=== PATIENT | female | born 1960 | race Two or more races ===

== ENCOUNTER 2016-09-23 14:06 | Emergency (ER) | payer OTHER ==
[~2016-09-23] VITALS: Ht 154.9 cm; Wt 75.3 kg
[2016-09-23 14:22] VITALS: BP 117/70
[2016-09-23] MEDS ORDERED: ZITHROMAX250 MG ORAL (15:47)
[2016-09-23] MEDS ORDERED: PROMETHAZI6.25 MG/1 ORAL (15:47)
[2016-09-23] MEDS ORDERED: IBUPROFEN600 MG ORAL (15:47)
[2016-09-23 15:55] VITALS: BP 120/74
--- NOTE | 2016-09-23 21:17 | Emergency Room Report ---
History of Present Illness General Chief Complaint: Upper Respiratory Illness Source: Patient Present Illness HPI The patient is a 56-year-old female presenting with fever, chills, and cough for the past 3 days. She produces a great deal of sputum. She denies any known sick contacts recent travel. She denies other symptoms including nausea, vomiting, rash, abdominal pain, chest pain, shortness of breath Allergies: Coded Allergies: No Known Allergies (Unverified , 09/23/16) Patient History Past Medical History: see triage record Pertinent Family History: none Now: No Reviewed Nursing Documentation: PMH: Agreed, PSxH: Agreed Nursing Documentation-PMH Past Medical History: No Stated History Review of Systems All Other Systems: negative except mentioned in HPI Physical Exam Vital Signs Date Time Temp Pulse Resp B/P Pulse Ox O2 Delivery O2 Flow Rate FiO2 09/23/16 14:15 100.2 88 15 117/70 99 Room Air Sp02 EP Interpretation: reviewed, normal General Appearance: no apparent distress, alert, GCS 15, non-toxic Head: normocephalic, atraumatic Eyes: bilateral eye PERRL, bilateral eye normal inspection ENT: hearing grossly normal, normal pharynx, no angioedema, normal voice Neck: full range of motion, supple/symm/no masses Respiratory: chest non-tender, lungs clear, normal breath sounds, no wheezing, speaking full sentences Cardiovascular #1: regular rate, rhythm, no edema Musculoskeletal: back normal, gait/station normal, normal range of motion, non- tender Neurologic: alert, oriented x3, responsive, motor strength/tone normal, sensory intact, speech normal Psychiatric: judgement/insight normal, memory normal, mood/affect normal, no suicidal/homicidal ideation Skin: normal color, no rash, warm/dry, well hydrated Lymphatic: no adenopathy Medical Decision Making PA Attestation Dr. Levy is my supervising physician. Patient management was discussed with my supervising physician Diagnostic Impression: Primary Impression: Atypical pneumonia ER Course The patient is a 56-year-old female presenting with fever and cough Differential diagnosis include but not limited to pharyngitis, sinusitis, AOM, bronchitis, PNA Physical exam: The patient is febrile. No apparent distress HEENT exam is unremarkable. No lymphadenopathy. Lungs are clear to auscultation bilaterally. No respiratory distress Chest x-ray reveals Consolidation to left lower lobe. The patient is given Motrin for fever and will be discharged home with prescription for azithromycin. Patient be treated for atypical pneumonia. She will follow up with primary doctor. ER precautions are given Chest X-Ray Diagnostic Results Chest X-Ray Diagnostic Results : Chest X-Ray Ordered: Yes # of Views/Limited/Complete: 1 View Indication: Other - cough EP Interpretation: Yes Interpretation: other - + consolidation to LLL Impression: Other - PNA Interpreting ER Provider: Grupo Levy MD PA Scribe Text I am acting as scribe for my supervising physician. My supervising physician's interpretation of the chest xrays are there Are findings consistent with left lower lobe pneumonia Last Vital Signs Date Time Temp Pulse Resp B/P Pulse Ox O2 Delivery O2 Flow Rate FiO2 09/23/16 15:55 100.2 76 15 120/74 99 Room Air Status: improved Disposition: HOME, SELF-CARE Condition: Stable Scripts Promethazine Hcl (PROMETHAZINE HCL*) 6.25 Mg/5 Ml Syrup 5 ML ORAL Q8H, #120 ML 0 Refills Prov: TATIANA GARCÍA.A. 09/23/16 Azithromycin* (ZITHROMAX*) 250 Mg Tablet 250 MG ORAL DAILY, #6 TAB 0 Refills Take two tables once daily for 1 day, then one tablet once daily for 4 days. Prov: TATIANA GARCÍA P.A. 09/23/16 Ibuprofen* (MOTRIN*) 600 Mg Tablet 600 MG ORAL Q8H Y for For Pain, #30 TAB 0 Refills Prov: TATIANA GARCÍA P.A. 09/23/16 Patient Instructions: Cough, Adult Additional Instructions: I discussed my findings with the patient. All questions and concerns have been answered. Treatment and medication compliance have been addressed. I advised the patient that they need to follow up with PMD in 3-5 days. Return to ED if pain remains or worsens, cough worsens or remains, you notice blood in your sputum, you notice wheezing, you experience a fever, or if needed for any reason. Patient verbalized understanding of discharge instructions. TATIANA GARCÍA Sep 23, 2016 21:17
--- NOTE | 2016-09-24 10:26 | Diagnostic Imaging Report ---
Indication: Cough Technique: XRAY CHEST 1 V Comparison: None Findings: Cardiomediastinal silhouette is within normal limits. There is hazy appearance in the left base. There is no pneumothorax or obvious pleural effusion. Degenerative changes of the spine are seen. Impression: Hazy appearance in the left base and subtle infiltrate cannot be excluded. Clinical correlation/followup recommended.
== END 2016-09-23 16:42 | disposition home or self-care (01) ==
LOC: EMR 14:35
DX: J18.9 Pneumonia, unspecified organism (principal)
CPT/HCPCS: 71010; 99284

== ENCOUNTER 2017-10-20 18:59 | Emergency (ER) | payer OTHER ==
[~2017-10-20] VITALS: Ht 154.9 cm; Wt 75.7 kg
[~2017-10-20 18:59] MED LIST: IBUPROFEN600 MG ORAL; PROMETHAZI6.25 MG/1 ORAL; ZITHROMAX250 MG ORAL
[2017-10-20 19:18] VITALS: BP 127/62
--- NOTE | 2017-10-20 20:08 | Emergency Room Report ---
History of Present Illness General Chief Complaint: Pain Source: Patient Present Illness HPI patient is a 57-year-old female with chronic history of bilateral heel pain here for follow-up post PCP visit and for pain management. Patient mentions that she has been given naproxen with minimal relief. Denies any recent injury denies trauma. The pain 8 out of 10 without radiation denying tingling numbness and all other associated symptoms denies chest pain shortness of breath palpitations abdominal pain Allergies: Coded Allergies: No Known Allergies (Unverified , 09/23/16) Patient History Past Medical History: see triage record Past Surgical History: none Last Menstrual Period: 2 yrs ago Immunizations: UTD Reviewed Nursing Documentation: PMH: Agreed; PSxH: Agreed Nursing Documentation-PMH Past Medical History: No Stated History Review of Systems All Other Systems: negative except mentioned in HPI Physical Exam Vital Signs Date Time Temp Pulse Resp B/P (MAP) Pulse Ox O2 Delivery O2 Flow Rate FiO2 10/20/17 19:15 98.5 66 14 127/62 96 Room Air 98.4 Sp02 EP Interpretation: reviewed, normal General Appearance: normal inspection, well appearing, no apparent distress Head: normocephalic Eyes: bilateral eye normal inspection, bilateral eye PERRL ENT: normal ENT inspection Neck: normal inspection, supple Respiratory: normal inspection, no rhonchi, no wheezing Cardiovascular #1: normal inspection, regular rate, rhythm, no murmur Gastrointestinal: normal inspection, soft Rectal: deferred Genitourinary: deferred Musculoskeletal: back normal, normal range of motion, non-tender Neurologic: normal inspection, alert Psychiatric: normal inspection, judgement/insight normal, memory normal Skin: normal inspection, normal color, no rash Lymphatic: normal inspection, no adenopathy Medical Decision Making PA Attestation all diagnoses and treatment plans were reviewed and discussed with my supervising physician Dr. Mak Diagnostic Impression: Primary Impression: Heel pain, bilateral Additional Impression: Back spasm ER Course patient is a 57-year-old female with chronic history of bilateral heel pain here for follow-up post PCP visit and for pain management. Patient mentions that she has been given naproxen with minimal relief. Denies any recent injury denies trauma. The pain 8 out of 10 without radiation denying tingling numbness and all other associated symptoms denies chest pain shortness of breath palpitations abdominal pain Ddx considered but are not limited to bilateral heel pain possibly due to heel spur, back pain Vital signs: are WNL, pt. is afebrile H&PE are most consistent with bilateral heel pain possibly due to heel spur and back pain ORDERS: naproxen and high strength Tylenol ED INTERVENTIONS: None required at this time. DISCHARGE: At this time pt. is stable for d/c to home. Will provide printed patient care instructions, and any necessary prescriptions. Care plan and follow up instructions have been discussed with the patient prior to discharge. that she has given the option of giving the Toradol shot but she refuses patient to follow with the primary care provider for further assessment and chronic pain management Last Vital Signs Date Time Temp Pulse Resp B/P (MAP) Pulse Ox O2 Delivery O2 Flow Rate FiO2 10/20/17 19:15 98.5 66 14 127/62 96 Room Air 98.4 Disposition: HOME, SELF-CARE Condition: Stable Scripts Acetaminophen* (TYLENOL EXTRA STRENGTH*) 500 Mg Tablet 500 MG ORAL Q6H PRN for Mild Pain/Temp > 100.5, #30 TAB 0 Refills Prov: China Ash 10/20/17 Naproxen* (NAPROXEN*) 500 Mg Tablet 500 MG ORAL TWICE A DAY, #30 TAB Prov: China Ash 10/20/17 Patient Instructions: Back Pain, Adult, Heel Spur Additional Instructions: take medication as directed follow with a primary care provider for more assessment regarding chronic pain China Ash Oct 20, 2017 20:08
[2017-10-20] MEDS ORDERED: NAPROXEN500 M2 ORAL (20:10)
[2017-10-20] MEDS ORDERED: TYLENOL EXTRA500 MG ORAL (20:10)
[2017-10-20 20:19] VITALS: BP 127/62
== END 2017-10-20 20:19 | disposition home or self-care (01) ==
LOC: EMR 20:10
DX: M79.672 Pain in left foot (principal); M79.671 Pain in right foot; M62.830 Muscle spasm of back
CPT/HCPCS: 99283

== ENCOUNTER 2018-01-23 10:20 | Emergency (ER) | payer OTHER ==
[~2018-01-23] VITALS: Ht 157.5 cm; Wt 74.4 kg
[~2018-01-23 10:20] MED LIST changes: +NAPROXEN500 M2 ORAL; +TYLENOL EXTRA500 MG ORAL
[2018-01-23 10:35] VITALS: BP 106/62
[2018-01-23] MEDS ORDERED: NAPROXEN250 MG ORAL (10:54)
--- NOTE | 2018-01-23 10:55 | Emergency Room Report ---
History of Present Illness General Chief Complaint: Back Pain-No Injury Source: Patient Present Illness HPI The pain is described as a burning-ache across upper back gradual onset 24 hours. Some pain into right shoulder also with movement. There is no trauma per se, no weakness or numbness. The patient works in [employer] an There is no flank pain. There is no abdominal pain. There is no discharge. Pt. is ambulatory. No recent PSH/procedures/trauma. Allergies: Coded Allergies: No Known Allergies (Unverified , 09/23/16) Patient History Now: No Nursing Documentation-PMH Past Medical History: No Stated History Review of Systems All Other Systems: limited Physical Exam Vital Signs Date Time Temp Pulse Resp B/P (MAP) Pulse Ox O2 Delivery O2 Flow Rate FiO2 01/23/18 10:23 98.1 65 18 105/59 99 Room Air General Appearance: well appearing, no apparent distress Head: normocephalic, atraumatic ENT: hearing grossly normal, normal voice Neck: full range of motion, supple Respiratory: no respiratory distress, speaking full sentences Musculoskeletal: no calf tenderness Neurologic: alert, normal gait Psychiatric: mood/affect normal Skin: no rash Medical Decision Making Diagnostic Impression: Primary Impression: Back pain Last Vital Signs Date Time Temp Pulse Resp B/P (MAP) Pulse Ox O2 Delivery O2 Flow Rate FiO2 01/23/18 10:35 98.2 62 18 106/62 98 Room Air Status: improved Disposition: HOME, SELF-CARE Scripts Naproxen* (NAPROSYN*) 250 Mg Tablet 250 MG ORAL TWICE A DAY PRN for For Pain, #30 TAB 0 Refills Prov: Abel Ferrell M.D. 01/23/18 Patient Instructions: Back Pain, Adult Abel Ferrell M.D. Jan 23, 2018 10:55
[2018-01-23 11:26] VITALS: BP 115/67
== END 2018-01-23 11:20 | disposition home or self-care (01) ==
LOC: EMR 10:55
DX: M54.9 Dorsalgia, unspecified (principal); M25.511 Pain in right shoulder
CPT/HCPCS: 99282

== ENCOUNTER 2018-05-31 18:37 | Emergency (ER) | payer OTHER ==
[~2018-05-31] VITALS: Ht 157.5 cm; Wt 77.1 kg
[~2018-05-31 18:37] MED LIST changes: +NAPROXEN250 MG ORAL
[2018-05-31] MEDS ORDERED: Fluorescein Strips LEFT EYE ONE (19:00)
[2018-05-31] MEDS ORDERED: Tetracaine 0.5% Opth 4ml Soln LEFT EYE ONE (19:00)
--- NOTE | 2018-05-31 19:12 | NUR ---
ED Nurse Note: pt walked in c/o headache and throbbing pain on left eye since this morning, pt states it was red during this morning and put eyedrops in it. pt denies any recent injuries, reports bluriness on left eye. noted mild redness in left eye. will cont monitor.
[2018-05-31 19:15] VITALS: BP 128/62
--- NOTE | 2018-05-31 19:15 | NUR ---
HAND-OFF: Report given to Tamia and endorsed care.
--- NOTE | 2018-05-31 20:11 | Emergency Room Report ---
History of Present Illness General Chief Complaint: Headache Source: Patient Present Illness Allergies: Coded Allergies: No Known Allergies (Unverified , 09/23/16) Patient History Past Medical History: see triage record Past Surgical History: none Pertinent Family History: none Now: No Reviewed Nursing Documentation: PMH: Agreed; PSxH: Agreed Nursing Documentation-PM Past Medical History: No Stated History Physical Exam Vital Signs Date Time Temp Pulse Resp B/P (MAP) Pulse Ox O2 Delivery O2 Flow Rate FiO2 05/31/18 18:44 98.2 62 20 128/62 98 Room Air Medical Decision Making PA Attestation Dr. Bauer is my supervising Physician whom patient management has been discussed with. Diagnostic Impression: Primary Impression: Corneal abrasion, left Qualified Codes: S05.02XA - Injury of conjunctiva and corneal abrasion without foreign body, left eye, initial encounter ER Course Pt. presents to the ED c/o : [ ] eye pain, redness, scratching sensation and increased tearing x [ ] day(s). - Pt denies Contact lens use. Ddx considered but are not limited to: corneal abrasion, acute glaucoma, globe rupture, FB, Corneal Ulcer, conjunctivitis. Iridis Vital signs: are WNL, pt. is afebrile H&PE are most consistent with: corneal abrasion ORDERS: -Tetracaine and Fluorescein Stain of the [ ] eye: -Increase fluorescein uptake in a linear fashion in the [ ] position of the [ ] eye, there is no involvement of the iris or pupil. Negative Tin sign. Pt. had positive relief of pain with tetracaine drops. there was negative evidence of Fb, deep ulcer, or rupture. ED INTERVENTIONS: none at this time. DISCHARGE: At this time pt. is stable for d/c to home. Will provide printed patient care instructions, and any necessary prescriptions. Care plan and follow up instructions have been discussed with the patient prior to discharge. . Last Vital Signs Date Time Temp Pulse Resp B/P (MAP) Pulse Ox O2 Delivery O2 Flow Rate FiO2 05/31/18 19:15 98.2 62 20 128/62 98 Room Air Disposition: HOME, SELF-CARE Condition: Stable Scripts Ofloxacin (OCUFLOX) 5 Ml Drops 1 DROP OP TID for 7 Days, #5 ML Prov: Janina Ward 05/31/18 Acetaminophen* (TYLENOL EXTRA STRENGTH*) 500 Mg Tablet 500 MG ORAL Q6H, #30 TAB 0 Refills Prov: Janina Ward 05/31/18 Departure Forms: Return to Work Return to Work Date: Jun 03, 2018 Work Restrictions: None Return to Full Activity: Jun 03, 2018 Patient Instructions: Corneal Abrasion, [id number] Additional Instructions: Take medications as directed. Follow up with a Mobile Application Tester within 48 hours ( 2 days), even if your symptoms have resolved. --Please review list of primary care clinics, if you do not already have a primary care provider Return sooner to ED if new symptoms occur, or current symptoms become worse. - Please note that this Emergency Department Report was dictated using [employer] technology software, occasionally this can lead to erroneous entry secondary to interpretation by the dictation equipment. Janina Ward May 31, 2018 20:11
[2018-05-31] MEDS ORDERED: OCUFLOX5 ML OP (20:12)
[2018-05-31] MEDS ORDERED: TYLENOL EXTRA500 MG ORAL (20:12)
[2018-05-31 20:15] VITALS: BP 128/62
--- NOTE | 2018-05-31 20:16 | NUR ---
ED Nurse Note: Pt cleared by health care Provider for discharge. DC instructions/prescription was given and explained to pt and verbalized understanding of teachings. All medical deviecs such as ID band removed. Pt is AAO x4, ambulatory and left with all personal belongings.
== END 2018-05-31 20:19 | disposition home or self-care (01) ==
LOC: EMR 20:10
DX: S05.02XA Injury of conjunctiva and corneal abrasion without foreign body, left eye, initial encounter (principal); X58.XXXA Exposure to other specified factors, initial encounter; Y92.9 Unspecified place or not applicable; R51 Headache
CPT/HCPCS: 99283